=== PATIENT | male | born 1945 | race Caucasian/White ===

== ENCOUNTER 2019-01-27 06:50 | Observation (INO) | payer MEDICARE ==
[2019-01-23 12:05] LABS: BASOPHILS % 0.8 % (0.0-1.0); EOSINOPHILS # (AUTO) 0.1 (0.0-0.4); EOSINOPHILS % 1.6 % (0.0-6.0); HEMATOCRIT 43.8 % (38.2-49.6); HEMOGLOBIN 15.1 g/dL (14.0-18.0); LYMPHOCYTES # (AUTO) 1.4 (1.0-3.2); LYMPHOCYTES % 28.7 % (18.0-39.1); MEAN CORPUSCULAR HEMOGLOBIN 31.4 pg (28-32); MEAN CORPUSCULAR HGB CONC 34.5 g/dL (31-35); MEAN CORPUSCULAR VOLUME 91.1 fL (81-99); MONOCYTES # (AUTO) 0.5 (0.2-0.8); MONOCYTES % 10.2 % (4.4-11.3); NEUTROPHILS # (AUTO) 2.9 (2.1-6.9); NEUTROPHILS % 57.9 % (38.7-80.0); PLATELET COUNT 200 x10e3/uL (140-360); RED BLOOD COUNT 4.81 x10e6/uL (4.3-5.7); RED CELL DISTRIBUTION WIDTH 12.5 % (11.7-14.4)
--- NOTE | 2019-01-23 12:34 | Diagnostic Imaging Report ---
Chest, PA and lateral. History: Preoperative evaluation for knee surgery. Comparison: None available. Discussion: The cardiomediastinal silhouette and pulmonary vasculature are within normal limits. The lungs are clear without evidence of consolidation or effusion. There are no acute osseous abnormalities. Cervical fusion hardware is partially visualized. IMPRESSION: No radiographic evidence of acute cardiopulmonary abnormality. Signed by: Kieran Patricia MD on 01/23/2019 12:31 PM
[~2019-01-27] VITALS: Ht 170.2 cm; Wt 96.6 kg
[~2019-01-27 06:50] MED LIST: ALBUTEROL0.63 MG/3 INH; BACITRACIN 50,000 UNIT VIAL ONE; BENADRYL25 M1 PO; BOSWELLIA SERRAT1 GM PO; CALCIUM CITRATE PO; CO Q-10 PO; FISH OIL PO; GLUCOSAMINE PO; HELIOCARE240 MG PO; NAPROXEN500 MG PO; SODIUM CHLORIDE 0.9% 500ML 500 ML ONE; TRANEXAMIC ACID 1,000 MG/10 ML ML ONE; VANCOMYCIN HCL 1,000 MG ONE; VITAMIN B-12 PO; ZYRTEC10 M3 PO; [UNRECOGNIZED DRUG - CODE] PO
[2019-01-27] MEDS ORDERED: CELECOXIB 200 MG CAP ONE (07:09)
[2019-01-27] MEDS ORDERED: DEXAMETHASONE SOD PHOS 10 MG/1 ML VIAL ONE (07:09)
[2019-01-27] MEDS ORDERED: CEFAZOLIN SOD 1 GM/NS 50ML 100 ML IV ONE (07:10)
[2019-01-27] MEDS ORDERED: GABAPENTIN 300 MG CAP ONE (07:10)
[2019-01-27] MEDS ORDERED: ROPIVACAINE 246.25 MG, EPINEPHRINE HCL 1:1000 1ML 0.5 MG, CLONIDINE HCL 0.08 MG, KETORO... INJ ONE ×5 (07:30)
[2019-01-27] MEDS ORDERED: ACETAMINOPHEN 650 MG SUPP PR PRN (10:00)
[2019-01-27] MEDS ORDERED: HYDROCODONE/APAP 5MG-325MG TAB PO PRN (10:00)
[2019-01-27] MEDS ORDERED: HYDROCODONE/APAP 7.5MG-325MG 1 EA TAB PO PRN (10:00)
[2019-01-27] MEDS ORDERED: KETOROLAC TROMETHAMINE 30 MG/ML VIAL IV PRN (10:00)
[2019-01-27] MEDS ORDERED: ONDANSETRON HCL INJ 2MG/ML 2ML 2 MG/ML VIAL IV PRN (10:00)
[2019-01-27] MEDS ORDERED: DOCUSATE SODIUM 100 MG CAP PO PRN (10:00)
[2019-01-27] MEDS ORDERED: PROMETHAZINE HCL (IM) 25 MG/ML VIAL INJ PRN (10:00)
[2019-01-27] MEDS ORDERED: ZOLPIDEM TARTRATE 5 MG TAB PO PRN (10:00)
[2019-01-27] MEDS ORDERED: DIPHENHYDRAMINE HCL INJ 50 MG/ML VIAL IM/IV PRN (10:00)
[2019-01-27] MEDS ORDERED: FENTANYL CITRATE/PF 100MCG/2 ML INJ ONE ×2 (10:39→13:05)
--- NOTE | 2019-01-27 11:50 | NUR ---
RECEIVED TO RM AAOX3 NO DISTRESS NOTED, UPDATED ON POC VOICED UNDERSTANDING, DENIES PAIN AT THIS TIME, R HAND 20G NO SS OF INFILTRATION NOTED, DSG TO L KNEE C/D/I, NO OTHER CO VOICED CALL LIGHT IN REACH WILL CONTINUE OT MONITOR
[2019-01-27] MEDS: ACETAMINOPHEN 1000 MG/100 ML IV SCH ×3 (12:00→23:49)
[2019-01-27 12:03] VITALS: BP 145/69
--- NOTE | 2019-01-27 12:16 | Diagnostic Imaging Report ---
EXAM: KNEE LEFT 1-2 VIEWS DATE: 01/27/2019 9:49 AM INDICATION: Postop knee replacement COMPARISON: None FINDINGS: There are postsurgical changes from recent total left knee replacement. Hardware appears intact and in anatomic alignment. There is no evidence for acute fracture or dislocation. There is expected subcutaneous emphysema and small joint effusion. Overlying skin maria del carmen noted. IMPRESSION: Expected postsurgical changes from recent left knee arthroplasty. Signed by: Dr. Brandin Villareal MD on 01/27/2019 12:13 PM
[2019-01-27 12:26] VITALS: BP 145/69
[2019-01-27] MEDS ORDERED: MIDAZOLAM HCL 2 MG/2 ML VIAL ONE (13:05)
[2019-01-27] MEDS ORDERED: CEFAZOLIN SOD 1 GM/NS 50ML 50 ML IV SCH (14:00)
[2019-01-27] MEDS: SODIUM CHLORIDE 0.9% 1000ML 1,000 ML IV SCH ×2 (14:15→19:49)
[2019-01-27 16:07] VITALS: BP 139/66
[2019-01-27] MEDS ORDERED: CELECOXIB 100 MG CAP PO SCH (17:00)
[2019-01-27] MEDS: ASPIRIN 325 MG TAB PO SCH (17:00)
[2019-01-27] MEDS: CELECOXIB 200 MG CAP PO SCH (17:00)
[2019-01-27] MEDS: CEFAZOLIN SOD 1 GM/NS 50ML 50 ML IV SCH (17:00)
--- NOTE | 2019-01-27 17:24 | Operative Report ---
DATE OF PROCEDURE: 01/27/2019 SURGEON: Abisai Dey MD AUTOMATIC DRILLER AND REAMER: Mele Prater, certified PA. PREOPERATIVE DIAGNOSIS: Osteoarthritis, left knee. POSTOPERATIVE DIAGNOSIS: Osteoarthritis, left knee. PROCEDURE: Left total knee arthroplasty. INDICATIONS: The patient is a 73-year-old gentleman, who has a long history of left knee pain. Clinic exam and x-ray findings are consistent with advanced osteoarthritis. He has failed conservative management and would like to proceed with a left total knee replacement. He has been through a right total knee replacement. The risks and benefits were reviewed. He stated he understood and wished to proceed. PROCEDURE IN DETAIL: The patient was brought to the operating room and placed under general anesthetic. He received prophylactic antibiotics, a regional block, and tranexamic acid in the holding area. His left lower extremity was prepped and draped in a sterile manner. A preoperative time-out was performed. The extremity was exsanguinated and a proximal tourniquet was inflated to 350 mmHg. An anterior incision with a medial parapatellar arthrotomy was performed. A large effusion of clear synovial fluid was removed from the joint. Soft tissue releases were performed to bring the knee up into flexion with the patella everted. Marginal osteophytes, meniscal remnants, and cruciate ligaments were removed. A [place] and [employer] knee system were used throughout the case. An extramedullary cutting guide was used to resect the proximal tibia. The tibial base plate was noted to be a size #6. The central fin punch was impacted and attention was directed towards the distal femur. An intramedullary cutting guide was used to resect the distal femur and 6 degrees of valgus and rotation, referencing off a combination of landmarks including Whitesides line, the epicondylar axis, and the posterior condyles. The femoral component was a size #7. The anterior and posterior cuts were made. Trial reductions were performed. A 9 mm ultracongruent tibial insert provided appropriate soft tissue balancing in full extension and 90 degrees of flexion. The patella was resurfaced with a 32 mm x 7.5 mm patellar button. The thickness was checked before and after resurfacing, and was right at 23 mm each time. Patellar tracking was concentric. No lateral retinacular release was necessary. The trial components were then all removed. A 100 mL premixed pericapsular ALIA injection was placed into the surrounding soft tissue. The knee was thoroughly irrigated with a shower tip pulsatile lavage. All bone cuts had been irrigated with a spray mixture of diluted polymyxin and vancomycin spray. The components were cemented into place using a single mix of high viscosity Biomet cement, preloaded with antibiotics. Care was taken to remove extravasated cement. The wound was further irrigated while the cement cured. The arthrotomy was then closed with interrupted #1 Ethibond. The knee was put through flexion and extension to ensure a secure closure. The skin was closed with subcuticular Vicryl and maria del carmen. A sterile Aquacel bandage and an Hector wrap were applied. The patient was extubated and transported to the recovery room in stable condition. Blood loss was minimal. All needle and sponge counts were correct. Abisai Dey MD DR/NAVEED /[id number]
[2019-01-27 19:48] VITALS: BP 143/67
[2019-01-27 19:57] VITALS: BP 139/66
[2019-01-27] MEDS ORDERED: ONDANSETRON HCL INJ 2MG/ML 2ML 2 MG/ML VIAL ONE (20:17)
[2019-01-27] MEDS ORDERED: PROPOFOL IV EMULSION 10 MG/ML 20 ML VIAL ONE (20:17)
[2019-01-27] MEDS ORDERED: SEVOFLURANE INHAL SOLN 250 ML PEN BTL ONE (20:17)
[2019-01-27] MEDS ORDERED: LIDOCAINE HCL 2% LOCAL INJ 5 ML SDV VIAL INJ ONE (20:17)
[2019-01-27] MEDS ORDERED: KETOROLAC TROMETHAMINE 30 MG/ML VIAL ONE (20:17)
[2019-01-28 00:10] VITALS: BP 145/68
[2019-01-28] MEDS: CEFAZOLIN SOD 1 GM/NS 50ML 50 ML IV SCH ×2 (00:58→09:03)
[2019-01-28 05:13] VITALS: BP 150/70
[2019-01-28 05:36] LABS: HEMATOCRIT 36.2 % (38.2-49.6); HEMOGLOBIN 12.1 g/dL (14.0-18.0)
[2019-01-28] MEDS: ACETAMINOPHEN 1000 MG/100 ML IV SCH (05:43)
[2019-01-28] MEDS: SODIUM CHLORIDE 0.9% 1000ML 1,000 ML IV SCH (05:49)
[2019-01-28 08:21] VITALS: BP 147/67
[2019-01-28 08:49] VITALS: BP 147/67
[2019-01-28] MEDS: CELECOXIB 200 MG CAP PO SCH (09:03)
[2019-01-28] MEDS: ASPIRIN 325 MG TAB PO SCH (09:03)
--- NOTE | 2019-01-28 09:48 | NUR ---
Received order for home health and dme before DC. Spoke with patient, Dr. Dey's office has sent a referral to home care providers for home health [phone]. Prabhu has been here to see patient and home health is confirmed. Julio with [facility] is here [phone] delivering 3:1 and CPM, patient already has walker. Copy of info is given to patient and CM's card.
--- NOTE | 2019-01-28 09:53 | NUR ---
YASMIN explained to patient, copy to patient, copy to chart.
[2019-01-28] MEDS ORDERED: ACETAMINOPHEN 1000 MG/100 ML IV PRN (10:00)
[2019-01-28] MEDS ORDERED: ONDANSETRON HCL 4 MG ORAL DISINTEGRATING TAB PO PRN (10:30)
--- NOTE | 2019-01-28 10:50 | Consultation ---
DATE OF CONSULTATION: REASON FOR CONSULTATION: Postop medical management. HISTORY OF PRESENT ILLNESS: The patient is a 73-year-old gentleman, who is status post left knee arthroplasty. He is doing very well postoperatively. He does have some pain in the left knee, but it has been well controlled with his pain medicines. REVIEW OF SYSTEMS: He denies any nausea, vomiting, fever, chills, headaches, shortness of breath, or dizziness. PAST MEDICAL HISTORY: Unremarkable. MEDICATIONS: See MAR. ALLERGIES: NONE. SOCIAL HISTORY: Former smoker. . Retired. Lives at home. FAMILY HISTORY: Heart disease and high blood pressure. PHYSICAL EXAMINATION: VITAL SIGNS: Temperature 97.5, pulse 87, blood pressure 145/68, and saturations 95% on room air. GENERAL: He is in no apparent distress, lying in bed. NECK: Supple. CARDIOVASCULAR: Regular rate and rhythm. LUNGS: Clear to auscultation bilaterally. ABDOMEN: Good bowel sounds. Soft and nontender. EXTREMITIES: No clubbing or cyanosis. NEUROLOGIC: Nonfocal. ASSESSMENT AND PLAN: 1. Left knee pain. Continue with postoperative physical therapy and pain control. 2. Anemia. Check a CBC. 3. Elevated blood pressure without diagnosis of hypertension. Continue to monitor. 4. Obesity. Continue with diet. Please see hospital chart for full details. MD RENAN Aguila/NAVEED /[id number]
[2019-01-28 11:31] VITALS: BP 127/86
[2019-01-30] MEDS ORDERED: ROPIVACAINE 0.5% 5 MG/ML 30 ML SDV ONE (12:57)
[2019-01-30] MEDS ORDERED: LIDOCAINE 2% /EPINEPHRINE 20 ML SDV INJ ONE (12:57)
== END 2019-01-28 12:55 | disposition home health service (06) ==
LOC: OR 06:50 → PACU V 09:51 → MED/SURG 11:52
PROVIDERS: ADMIT Specialist; ATTEND Specialist
DX: M17.12 Unilateral primary osteoarthritis, left knee (principal)
CPT/HCPCS: 27447; 36415 ×2; 71046; 73560; 85014; 85018; 85025; 86850; 86900; 86920; 93005; 97116 ×2; 97161; 97530 ×2; C1713; G0378 ×2; J0131 ×2; J0171; J0690 ×2; J1100; J1885 ×2; J2001; J2405; J2704; J2795; J3010; J3370; J7030; J7040; J2250

== ENCOUNTER 2019-04-17 07:58 | Outpatient (RCR) | payer MEDICARE ==
[~2019-04-17 07:58] MED LIST changes: -BACITRACIN 50,000 UNIT VIAL ONE; -SODIUM CHLORIDE 0.9% 500ML 500 ML ONE; -TRANEXAMIC ACID 1,000 MG/10 ML ML ONE; -VANCOMYCIN HCL 1,000 MG ONE
== END 2019-04-18 ==
LOC: PT 07:58
PROVIDERS: ATTEND Specialist
DX: Z96.652 Presence of left artificial knee joint (principal); M62.81 Muscle weakness (generalized); M25.562 Pain in left knee; M25.662 Stiffness of left knee, not elsewhere classified
CPT/HCPCS: 97139

== ENCOUNTER 2019-04-24 08:00 | Outpatient (RCR) | payer MEDICARE | END 2019-05-19 | LOC: PT 08:00 | PROVIDERS: ATTEND Specialist | DX: Z96.652 Presence of left artificial knee joint (principal); M62.81 Muscle weakness (generalized); M25.562 Pain in left knee; M25.662 Stiffness of left knee, not elsewhere classified | CPT/HCPCS: 97139 ==